=== PATIENT | male | born 1940 | race Caucasian/White ===

== ENCOUNTER 2017-06-30 14:58 | Emergency (ER) | payer OTHER, MEDICARE ==
[2017-06-30 15:19] VITALS: PULSE 80; RESP 18
--- NOTE | 2017-06-30 15:58 | EDPHY ---
H & P Stated Complaint: Abd pain w/nausea x 1 day Time Seen by Provider: 06/30/17 15:58 HPI/ROS: HPI: This is a 77-year-old male presents with Chief Complaint: Abd pain w/nausea x 1 day Location: Left lower quadrant Quality: Pain Duration: Since 9:00 a.m. Signs and Symptoms: no fever, + nausea, no vomiting, no hematemesis, no blood in stool, no abdominal bloating, no diarrhea, no back pain, no urinary symptoms , no testicular/groin pain, no indigestion, no chest pain, no shortness of breath Timing: Sudden, constant Severity: Moderate Context: Patient presents with complaints of left lower quadrant pain that started around 9 or 10 this morning, moderate to severe in nature, nonradiating , constant accompanied by nausea. He denies fever/change in bowel habits/ urinary symptoms/testicular groin pain/back pain/blood in stool. He reports his last bowel movement was yesterday. He has been able to eat without difficulty. No history of kidney stones. No history of abdominal surgeries. He denies any heavy lifting/trauma. He takes oxycodone for chronic pain and reports that the left lower quadrant pain would go away for approximately 3-4 hours but then returned once the medication wore off. Reports that he coughs at night but nothing more than baseline. He attributes this to his COPD. Modifying Factors: Oxycodone Comment: ROS: see HPI Constitutional: No fever, no chills, no weight loss Eyes: No blurred vision Respiratory: No shortness of breath, no cough Cardiovascular: No chest pain, no palpitations Gastrointestinal: + nausea, no vomiting, no diarrhea, no hematemesis, no blood in stool Genitourinary: No dysuria, no blood in urine Extremities: No myalgias, no edema Neurologic: No weakness, no numbness Skin: No rashes, no petechiae Hematologic: No bruising, no bleeding MEDICAL/SURGICAL/SOCIAL HISTORY: Medical history: HTN, hyperlipidemia, COPD Surgical history: Multiple orthopedic surgeries Social history: . CONSTITUTIONAL: Nontoxic peeling elderly white male, awake and alert, no obvious distress HEENT: Atraumatic and normocephalic, PERRL, EOMI. Tympanic membranes clear. Oropharynx clear, no exudate and moist pink mucosa. Airway patent. No lymphadenopathy. No meningismus. Cardiovascular: Normal S1/S2, regular rate, regular rhythm, without murmur rub or gallop. PULMONARY/CHEST: Symmetrical and nontender. Clear to auscultation bilaterally. Good air movement. No accessory muscle usage. ABDOMEN: Soft, protuberant, nondistended, left lower quadrant tenderness with deep palpation, no rebound, no guarding, no peritoneal signs, no masses or organomegaly. No CVAT. Bowel sounds hypoactive x4 EXTREMITIES: 2/2 pulses, strength 5/5, no deformities, no clubbing, no cyanosis or edema. NEUROLOGICAL: no focal neuro deficits. GCS 15. SKIN: Warm and dry, no erythema. no rash. Good capillary refill. [id number]; Source: Patient Exam Limitations: No limitations - Personal History Current Tetanus Diphtheria and Acellular Pertussis (TDAP): Yes - Medical/Surgical History Hx Chronic Respiratory Disease: Yes Hx Cardiac Disease: Yes Other PMH: HTN. cholseterol. COPD - Social History Smoking Status: Former smoker Constitutional: Initial Vital Signs Temperature (C) 36.5 C 06/30/17 15:10 Heart Rate 80 06/30/17 15:10 Respiratory Rate 18 06/30/17 15:10 Blood Pressure 176/102 H 06/30/17 15:10 O2 Sat (%) 95 06/30/17 15:10 O2 Delivery Mode Room Air Allergies/Adverse Reactions: meperidine [From Demerol] Allergy (Verified 06/30/17 15:20) nortriptyline [From Pamelor] Allergy (Verified 06/30/17 15:20) protriptyline [From Vivactil] Allergy (Verified 06/30/17 15:20) Sulfa (Sulfonamide Antibiotics) Allergy (Verified 06/30/17 15:20) Home Medications: Medication Instructions Recorded Albuterol Hfa Anes Only [Proair 2 puffs IH 06/30/17 Hfa Icu (*)] Aspirin EC [Aspirin EC 81 mg (*)] 81 mg PO DAILY 06/30/17 FLUoxetine [PROzac] 20 mg PO 06/30/17 Fludrocortisone Acetate [Florinef] 0.1 mg PO 06/30/17 GABAPENTIN 06/30/17 Hydrocodone/APAP 5/325 [[place] 1 - 2 tab PO Q4H PRN #10 tab 06/30/17 5/325 (*)] Hydrocodone/APAP 5/325 [[place] 1 tab PO 06/30/17 5/325 (*)] Ketorolac Tromethamine [Toradol] 10 mg PO Q8H #12 tab 06/30/17 Ondansetron Odt [Zofran Odt 4 mg 4 mg PO Q4 PRN #12 tab 06/30/17 (*)] Propranolol HCl [Inderal 40mg (*)] 40 mg PO 06/30/17 Simvastatin [Zocor] 40 mg PO 06/30/17 Tamsulosin HCl [Flomax 0.4 MG (*)] 0.4 mg PO 06/30/17 Topiramate [Topamax 100MG (*)] 100 mg PO 06/30/17 lamoTRIgine [LamICTAL 100 MG (*)] 100 mg PO 06/30/17 Medical Decision Making - Diagnostics Imaging Results: Imaging Impressions Abdomen CT 06/30/17 16:10 Impression: 1. Mild to moderate left-sided hydronephrosis secondary to a 2.5 x 2 mm left UVJ calculus. 2. 5 small less than 3 mm nonobstructive calculi remaining within the left kidney. 3. No evidence for diverticulitis, abscess, or appendicitis. Findings discussed with Arti Lang PAC at 17:35 hour, 06/30/2017. ED Course/Re-evaluation: Labs, urinalysis, IV fluids, IV medications, CT abdomen and pelvis scan with contrast ordered Afebrile and no systemic signs. Given 2 L normal saline, IV Toradol, IV morphine and IV Zofran upon arrival 1642: Labs reviewed; mild leukocytosis noted with a creatinine 1.5. No prior creatinine values to compare. Unsure of baseline. Received 1 L normal saline. BUN is within normal limits. UA shows blood in RBC; consistent with ureter stone Called by radiologist who advised that there is a 2.5 x 2 mm left ureterolithiasis stone near the UVJ junction; [id number] hydronephrosis. Reassessed patient. Who advises that pain has been adequately relieved. Denies nausea. He now informs me that he takes Flomax daily but has not taken his evening dose. He has chronic pain medications already. Prepack of Zofran and [place] given to patient. No signs of urinary retention/sepsis/electrolyte imbalance/pyelonephritis/ diverticulitis/obstruction Pain controlled passed p.o. trial prior to discharge. Strainer given to patient to take home to strain all urine, advised Urology follow-up This patient was seen under the supervision of my secondary supervising physician. I evaluated care for this patient independently. Discussed this patient with Dr. Tavares who did not see the patient. Differential Diagnosis: Abdominal pain including but not limited to appendicitis, cholecystitis, diverticulitis, kidney stone, gastritis and urinary tract infection. - Data Points Laboratory Results: Laboratory Results 06/30/17 16:20 06/30/17 16:20 06/30/17 06/30/17 06/30/17 17:20 16:20 16:20 WBC 11.15 10^3/uL H 10^3/uL (3.80-9.50) RBC 4.37 10^6/uL L 10^6/uL (4.40-6.38) Hgb 13.6 g/dL L g/dL (13.7-17.5) Hct 40.4 % % (40.0-51.0) MCV 92.4 fL fL (81.5-99.8) MCH 31.1 pg pg (27.9-34.1) MCHC 33.7 g/dL g/dL (32.4-36.7) RDW 13.8 % % (11.5-15.2) Plt Count 170 10^3/uL 10^3/uL (150-400) MPV 9.4 fL fL (8.7-11.7) Neut % (Auto) 81.4 % H % (39.3-74.2) Lymph % (Auto) 10.6 % L % (15.0-45.0) [place] % (Auto) 6.7 % % (4.5-13.0) Eos % (Auto) 0.5 % L % (0.6-7.6) Baso % (Auto) 0.2 % L % (0.3-1.7) Nucleat RBC Rel Count 0.0 % % (0.0-0.2) Absolute Neuts (auto) 9.07 10^3/uL H 10^3/uL (1.70-6.50) Absolute Lymphs (auto) 1.18 10^3/uL 10^3/uL (1.00-3.00) Absolute Monos (auto) 0.75 10^3/uL 10^3/uL (0.30-0.80) Absolute Eos (auto) 0.06 10^3/uL 10^3/uL (0.03-0.40) Absolute Basos (auto) 0.02 10^3/uL 10^3/uL (0.02-0.10) Absolute Nucleated RBC 0.00 10^3/uL 10^3/uL (0-0.01) Immature Gran % 0.6 % % (0.0-1.1) Immature Gran # 0.07 10^3/uL 10^3/uL (0.00-0.10) Sodium 140 mEq/L mEq/L (134-144) Potassium 4.3 mEq/L mEq/L (3.5-5.2) Chloride 103 mEq/L mEq/L (97-110) Carbon Dioxide 24 mEq/l mEq/l (22-31) Anion Gap 13 mEq/L mEq/L (8-16) BUN 22 mg/dL mg/dL (7-23) Creatinine 1.5 mg/dL H mg/dL (0.7-1.3) Estimated GFR 46 Glucose 135 mg/dL H mg/dL (70-100) Calcium 9.7 mg/dL mg/dL (8.5-10.4) Total Bilirubin 0.6 mg/dL mg/dL (0.1-1.4) Conjugated Bilirubin 0.3 mg/dL mg/dL (0.0-0.5) Unconjugated Bilirubin 0.3 mg/dL mg/dL (0.0-1.1) AST 31 IU/L IU/L (17-59) ALT 35 IU/L IU/L (21-72) Alkaline Phosphatase 70 IU/L IU/L (38-126) Total Protein 6.9 g/dL g/dL (6.3-8.2) Albumin 4.4 g/dL g/dL (3.5-5.0) Lipase 251 IU/L IU/L (23-300) Urine Color PALE YELLOW Urine Appearance CLEAR Urine pH 6.0 (5.0-7.5) Ur Specific [place] 1.016 (1.002-1.030) Urine Protein NEGATIVE (NEGATIVE) Urine Ketones NEGATIVE (NEGATIVE) Urine Blood 1+ H (NEGATIVE) Urine Nitrate NEGATIVE (NEGATIVE) Urine Bilirubin NEGATIVE (NEGATIVE) Urine Urobilinogen NEGATIVE EU EU (0.2-1.0) Ur Leukocyte Esterase NEGATIVE (NEGATIVE) Urine RBC 5-10 /hpf H /hpf (0-3) Urine WBC 1-3 /hpf /hpf (0-3) Ur Epithelial Cells NONE SEEN /lpf /lpf (NONE-1+) Urine Mucus TRACE /lpf /lpf (NONE-1+) Urine Glucose NEGATIVE (NEGATIVE) Medications Given: Discontinued Medications Sodium Chloride (Ns) 1,000 mls @ 0 mls/hr IV ONCE ONE PRN Reason: Wide Open Stop: 06/30/17 16:00 Last Admin: 06/30/17 16:19 Dose: 1,000 mls Morphine Sulfate (Morphine) 4 mg IVP EDNOW ONE Stop: 06/30/17 16:02 Last Admin: 06/30/17 16:19 Dose: 4 mg Ondansetron HCl (Zofran) 4 mg IVP EDNOW ONE Stop: 06/30/17 16:00 Last Admin: 06/30/17 16:19 Dose: 4 mg Departure - Departure Disposition: Home, Routine, Self-Care Clinical Impression: Ureterolithiasis, Renal colic on left side Condition: Good Instructions: Ureteral Stones (ED) Additional Instructions: Please continue to take Flomax daily. Take Toradol every 8 hr with food for the next 3 days. Take [place] 1-2 tabs every 4 hr as needed for severe/breakthrough pain. Strain all of your urine until you pass the stone. Remain as active as possible while you are passing the stone. Follow-up with Urology, Dr. Marcos Hernandez, in the next 5-7 days. Referrals: SHAMIR CHAUDHRY [Other] - As per Instructions Marcos Hernandez MD [Medical Doctor] - As per Instructions Prescriptions: Hydrocodone/APAP 5/325 [[place] 5/325 (*)] 1 - 2 tab PO Q4H PRN #10 tab PRN Reason: Pain, Moderate Ketorolac Tromethamine [Toradol] 10 mg PO Q8H #12 tab Ondansetron Odt [Zofran Odt 4 mg (*)] 4 mg PO Q4 PRN #12 tab PRN Reason: Nausea/Vomiting, Use 1st
[2017-06-30] MEDS ORDERED: NS 1,000 ML IV ONE ×2 (15:59→17:43)
[2017-06-30] MEDS ORDERED: ONDANSETRON 4 MG/2 ML VIAL IVP ONE (15:59)
[2017-06-30 16:28] LABS: PLATELET COUNT 170 10^3/uL (150-400)
[2017-06-30] MEDS ORDERED: IOPAMIDOL (ISOVUE-300) 100 ML BTL ONE (16:44)
[2017-06-30] MEDS ORDERED: KETOROLAC 15 MG/1 ML SDV IVP ONE (17:43)
[2017-06-30] MEDS ORDERED: ONDANSETRON 4MG PREPACK#2 BTL TAKEHOME ONE (17:46)
[2017-06-30] MEDS ORDERED: HYDROCOD/APAP 5/325 PREPACK#6 BTL TAKEHOME ONE (17:46)
[2017-06-30 18:08] VITALS: BP 152/81; TEMP 98.8; O2SAT 91
== END 2017-06-30 18:36 | disposition home or self-care (01) ==
DX: N20.1 Calculus of ureter (principal); E86.9 Volume depletion, unspecified; I10 Essential (primary) hypertension; J44.9 Chronic obstructive pulmonary disease, unspecified; Z79.82 Long term (current) use of aspirin; Z87.891 Personal history of nicotine dependence
CPT/HCPCS: 74177; 96361; 96374; 96375; 99285; J1885; J2405; Q9967